=== PATIENT | female | born 2000 | race Caucasian/White ===

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

== ENCOUNTER 2019-08-08 15:21 | Emergency (ER) | payer BC ==
[~2019-08-08] VITALS: Ht 170 cm; Wt 100.0 kg
[2019-08-08] MEDS ORDERED: FLUT100B (15:39)
[2019-08-08] MEDS ORDERED: SPIR100T4 PO (15:39)
[2019-08-08] MEDS ORDERED: SERT50TA9 PO (15:39)
[2019-08-08] MEDS ORDERED: SPIR25TA5 PO (15:39)
[2019-08-08] MEDS ORDERED: NF-ADDXR30 (15:39)
[2019-08-08] MEDS ORDERED: IRON18TA PO (15:39)
[2019-08-08] MEDS ORDERED: LORA10CA PO (15:39)
--- NOTE | 2019-08-08 15:57 | ED GI ---
General Chief Complaint: Rect Problems Stated Complaint: BLOODY STOOLS Nursing Triage Note: PT CO OF BLOODY STOOLS FOR 3-4 MONTHS. PT DENIES PAIN. STATES HAS BLOOD EVERYTIME SHE HAS STOOLS Source of Information: Patient Exam Limitations: No Limitations History of Present Illness Date Seen by Provider: Aug 08, 2019 Time Seen by Provider: 16:00 Initial Comments To ER with bloody stools or bright red blood per rectum every time and only when she has a bowel movement for the past 3 months. She denies any rectal or abdominal pain. She denies any fevers or chills or systemic symptoms like nausea vomiting joint pains. No known personal or family history of inflammatory bowel disease. No lightheadedness. Timing/Duration: Other Severity/Quality: Cramping Location: Other Radiation: No Radiation Activities at Onset: None Allergies and Home Medications Allergies Coded Allergies: nut - unspecified (Verified Allergy, Unknown, 08/08/19) peas (Verified Allergy, Unknown, 08/08/19) Patient Home Medication List Home Medication List Reviewed: Yes Review of Systems Review of Systems Constitutional: see HPI EENTM: No Symptoms Reported Respiratory: No Symptoms Reported Cardiovascular: No Symptoms Reported Gastrointestinal: See HPI; Denies Abdominal Pain, Denies Constipated, Denies Diarrhea, Denies Nausea; Rectal Bleeding Genitourinary: No Symptoms Reported Musculoskeletal: no symptoms reported Skin: no symptoms reported Psychiatric/Neurological: No Symptoms Reported Endocrine: No Symptoms Reported Hematologic/Lymphatic: No Symptoms Reported Past Kmfvylm-Afsmpt-Nlbbnt Hx Patient Social History Alcohol Use: Rarely Uses Recreational Drug Use: No Recent Foreign Travel: No Contact w/Someone Who Travel: No Recent Infectious Disease Expo: No Recent Hopitalizations: No Ebola Symptoms: Denies Symptoms Listed Immunizations Up To Date Date of Influenza Vaccine: Mar 28, 2019 Seasonal Allergies Seasonal Allergies: Yes Past Medical History Surgeries: Yes Respiratory: Yes Asthma Cardiac: No Neurological: No Genitourinary: No Gastrointestinal: No Musculoskeletal: No Endocrine: No Cancer: No ADD/ADHD, Anxiety Integumentary: Yes (BOILS UNDER SKIN) Physical Exam Vital Signs Vital Signs - First Documented 08/08/19 15:28 Temp 36.6 Pulse 86 Resp 12 B/P (MAP) 118/81 Capillary Refill : Height/Weight/BMI Height: '" Weight: lbs. oz. kg; 34.00 BMI Method: General Appearance: WD/WN, no apparent distress, other (clinically she is stable without evidence of acute blood loss, she is not tachycardic or hypotensive, she is not pale or short of breath and lightheaded.) HEENT: PERRL/EOMI, normal ENT inspection Respiratory: no respiratory distress, no accessory muscle use Gastrointestinal: normal bowel sounds, non tender, soft, other (no obvious bleeding during rectal exam with Kimberly RN at the bedside. No external hemorrhoid visualized. No fissure visualized.) Extremities: normal range of motion, non-tender Neurologic/Psychiatric: alert, normal mood/affect Skin: normal color, warm/dry Progress/Results/Core Measures Results/Orders Lab Results Laboratory Tests Test 08/08/19 16:10 08/08/19 16:16 Range/Units Urine Color YELLOW Urine Clarity CLEAR Urine pH 5.0 5-9 Urine Specific [place] >=1.030 1.016-1.022 Urine Protein NEGATIVE NEGATIVE Urine Glucose (UA) NEGATIVE NEGATIVE Urine Ketones NEGATIVE NEGATIVE Urine Nitrite NEGATIVE NEGATIVE Urine Bilirubin NEGATIVE NEGATIVE Urine Urobilinogen 0.2 < = 1.0 MG/DL Urine Leukocyte Esterase TRACE H NEGATIVE Urine RBC (Auto) NEGATIVE NEGATIVE Urine RBC NONE /HPF Urine WBC RARE /HPF Urine Squamous Epithelial Cells 0-2 /HPF Urine Crystals NONE /LPF Urine Bacteria TRACE /HPF Urine Casts NONE /LPF Urine Mucus NEGATIVE /LPF Urine Culture Indicated NO White Blood Count 12.0 H 4.3-11.0 10^3/uL Red Blood Count 4.39 4.35-5.85 10^6/uL Hemoglobin 12.4 11.5-16.0 G/DL Hematocrit 39 35-52 % Mean Corpuscular Volume 88 80-99 FL Mean Corpuscular Hemoglobin 28 25-34 PG Mean Corpuscular Hemoglobin Concent 32 32-36 G/DL Red Cell Distribution Width 13.8 10.0-14.5 % Platelet Count 306 130-400 10^3/uL Mean Platelet Volume 10.8 H 7.4-10.4 FL Neutrophils (%) (Auto) 62 42-75 % Lymphocytes (%) (Auto) 28 12-44 % Monocytes (%) (Auto) 7 0-12 % Eosinophils (%) (Auto) 3 0-10 % Basophils (%) (Auto) 0 0-10 % Neutrophils # (Auto) 7.4 1.8-7.8 X 10^3 Lymphocytes # (Auto) 3.4 1.0-4.0 X 10^3 Monocytes # (Auto) 0.8 0.0-1.0 X 10^3 Eosinophils # (Auto) 0.4 H 0.0-0.3 10^3/uL Basophils # (Auto) 0.0 0.0-0.1 10^3/uL Prothrombin Time 13.2 12.2-14.7 SEC INR Comment 1.0 0.8-1.4 Sodium Level 136 135-145 MMOL/L Potassium Level 3.7 3.6-5.0 MMOL/L Chloride Level 102 98-107 MMOL/L Carbon Dioxide Level 25 21-32 MMOL/L Anion Gap 9 5-14 MMOL/L Blood Urea Nitrogen 10 7-18 MG/DL Creatinine 0.75 0.60-1.30 MG/DL Estimat Glomerular Filtration Rate > 60 BUN/Creatinine Ratio 13 Glucose Level 89 70-105 MG/DL Calcium Level 10.0 8.5-10.1 MG/DL Corrected Calcium 9.6 8.5-10.1 MG/DL Total Bilirubin 0.4 0.1-1.0 MG/DL Aspartate Amino Transf (AST/SGOT) 18 5-34 U/L Alanine Aminotransferase (ALT/SGPT) 18 0-55 U/L Alkaline Phosphatase 61 40-136 U/L Total Protein 7.3 6.4-8.2 GM/DL Albumin 4.5 3.2-4.5 GM/DL My Orders Orders - MINERVA DILLARD APRN Cbc With Automated Diff (08/08/19 15:55) Comprehensive Metabolic Panel (08/08/19 15:55) Protime With Inr (08/08/19 15:55) Ua Culture If Indicated (08/08/19 15:55) Vital Signs/I&O 08/08/19 15:28 Temp 36.6 Pulse 86 Resp 12 B/P (MAP) 118/81 Departure Communication (Admissions) [place] on clinical exam and labs I do not have enough to justify CT imaging of the abdomen. She'll follow up with Dr. Hair tomorrow. Impression Primary Impression: Rectal bleeding Disposition: HOME, SELF-CARE Condition: Stable Departure-Patient Inst. Decision time for Depature: 16:03 Referrals: JOVANA HAIR MD NO,LOCAL PHYSICIAN (PCP) Primary Care Physician Patient Instructions: Hemorrhoids (DC) Add. Discharge Instructions: 1. Would be a good idea to take a stool softener such as Colace once daily and increase her water intake to help soften her stools. Follow-up with nurse practitioner Arturo George tomorrow, he works with surgeon Dr. Hair. He'll help facilitate colonoscopy to further evaluate this rectal bleeding, likely an internal hemorrhoid. All discharge instructions reviewed with patient and/or family. Voiced understanding. Copy Copies To 1: JOVANA HAIR MD, PETER J APRN Aug 08, 2019 15:57
[2019-08-08 16:21] LABS: BASOPHILS % (AUTO) 0 % (0-10); EOSINOPHILS # (AUTO) 0.4 10^3/uL (0.0-0.3); EOSINOPHILS % (AUTO) 3 % (0-10); HEMATOCRIT 39 % (35-52); HEMOGLOBIN 12.4 G/DL (11.5-16.0); LYMPHOCYTES # (AUTO) 3.4 X 10^3 (1.0-4.0); LYMPHOCYTES % (AUTO) 28 % (12-44); MEAN CORPUSCULAR HEMOGLOBIN 28 PG (25-34); MEAN CORPUSCULAR HGB CONC 32 G/DL (32-36); MEAN CORPUSCULAR VOLUME 88 FL (80-99); MEAN PLATELET VOLUME 10.8 FL (7.4-10.4); MONOCYTES # (AUTO) 0.8 X 10^3 (0.0-1.0); MONOCYTES % (AUTO) 7 % (0-12); NEUTROPHILS # (AUTO) 7.4 X 10^3 (1.8-7.8); NEUTROPHILS % (AUTO) 62 % (42-75); PLATELET COUNT 306 10^3/uL (130-400); RED CELL DISTRIBUTION WIDTH 13.8 % (10.0-14.5)
[2019-08-08 16:28] LABS: BILIRUBIN,URINE NEGATIVE (NEGATIVE); CLARITY,URINE CLEAR; COLOR,URINE YELLOW; GLUCOSE, URINE (UA) NEGATIVE (NEGATIVE); KETONES,URINE NEGATIVE (NEGATIVE); LEUKOCYTE ESTERASE ,URINE TRACE (NEGATIVE); NITRITE,URINE NEGATIVE (NEGATIVE); PROTEIN,URINE NEGATIVE (NEGATIVE)
[2019-08-08 16:35] LABS: BACTERIA,URINE TRACE /HPF; SQUAMOUS EPITHELIAL CELL,UR 0-2 /HPF; WBC,URINE RARE /HPF
[2019-08-08 16:36] LABS: PROTHROMBIN TIME PATIENT 13.2 SEC (12.2-14.7)
[2019-08-08 16:42] LABS: ALANINE AMINOTRANSFERASE 18 U/L (0-55); ALBUMIN 4.5 GM/DL (3.2-4.5); ALKALINE PHOSPHATASE 61 U/L (40-136); BILIRUBIN,TOTAL 0.4 MG/DL (0.1-1.0); BUN/CREATININE RATIO 13; CARBON DIOXIDE 25 MMOL/L (21-32); CHLORIDE 102 MMOL/L (98-107); CREATININE SERUM 0.75 MG/DL (0.60-1.30); GFR ESTIMATED > 60; GLUCOSE 89 MG/DL (70-105); POTASSIUM 3.7 MMOL/L (3.6-5.0); SODIUM 136 MMOL/L (135-145); TOTAL PROTEIN 7.3 GM/DL (6.4-8.2)
--- OUTSIDE RECORDS SUMMARY | 2019-08-18 09:25 | XMS REPORT | Continuity of Care Document ---
Author Organization Unknown Address Unknown Phone Unavailable Allergies Active Description Code Type Severity Reaction Onset Reported/Identified Relationship to Patient Clinical Status Yes AMOXICILLIN TRIHYDRATE 99171 DRUG INGREDI N/A N/A Yes CEFDINIR 62182 DRUG INGREDI N/A Hives 12/18/2014 Yes AMOXICILLIN 3675 Drug Allergy High Hives 06/15/2018 Yes CEFDINIR 7588 Drug Allergy High Hives 06/15/2018 Yes nut - unspecified [id number] Drug Allergy Unknown N/A 08/08/2019 Yes peas [id number] Drug Allergy Unknown N/A 08/08/2019 Medications Medication Packaging Start Date St op Date Route Dosage Sig PROCHLORPERAZINE EDISYLATE 5 MG/ML IJ SOLN 02/10/2016 Intravenous 10 ONCE DIPHENHYDRAMINE HCL 50 MG/ML IJ SOLN 02/10/2016 Intravenous 25 ONCE miSOPROStol (CYTOTEC) 200 mc g tablet -- Take by mouth One time for 1 dose tablet 06/13/2018 06/13/2018 Oral ONE TIME ONE TIME Problems Date Dx Coded Attending Type Code Diagnosis Diagnosed By 06/04/2015 V 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 06/11/2015 LEO HENRY V 169 Menorrhagia LEO HENRY 07/10/2015 AZALIA CHINO N92.0 Excessive and frequent menstruation with regular cycle 07/10/2015 AZALIA CHINO N92.0 Excessive and frequent menstruation with regular cycle 07/10/2015 V S99.911A U nspecified injury of right ankle, initial encounter 07/10/2015 AZALIA CHINO N92.0 Excessive and frequent menstruation with regular cycle 07/11/2015 MANUEL FULLER V 354704 Ankle Pain MANUEL FULLER 07/12/2015 RONNI SANTIAGO V [id number] New Patient RONNI SANTIAGO 07/18/2015 MINERVA SHEN V [id number] 09 Consult MINERVA HSEN 02/10/2016 COOKIE SCHERER V [id number] Arm Pain COOKIE SCHERER 02/10/2016 COOKIE SCHERER V 401 Weakness COOKIE SCHERER 02/10/2016 COOKIE SCHERER V M62.81 Muscle weakness (generalized) COOKIE SCHERER 02/10/2016 COOKIE SCHERER V R51 Headache COOKIE SCHERER 05/13/2018 WORKING Z30.8 Encounter for other contraceptive management 06/15/2018 EBONIE CHAVARRIA WORKING M 79.601 Pain in right arm 06/15/2018 EBONIE CHAVARRIA WORKING M 79.602 Pain in left arm 06/15/2018 EBONIE CHAVARRIA WORKING M 79.604 Pain in right leg 07/07/2018 WORKING Z30.430 Encounter for insertion of intrauterine contraceptive device 07/07/2018 WORKING Z30.8 Encounter for other contraceptive management 07/07/2018 WORKING Z30.430 Encounter for insertion of intrauterine contraceptive device 12/27/2018 SB NEWMAN, BENEDICT F Ot I10 ESSENTIAL (PRIMARY) HYPERTENSION 12/27/2018 SB NEWMAN, BENEDICT F Ot M93.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, UNSPECIFIED, LEFT ANK 12/27/2018 SB NEWMAN, BENEDICT F Ot M94.8X7 OTHER SPECIFIED DISORDERS OF CARTILAGE, 01/23/2019 JOSE ANTONIO CHOWDHURY M89.9 Disorder of bone, unspecified 01/23/2019 JOSE ANTONIO CHOWDHURY M25.57 2 Pain in left ankle and joints of left fo 01/23/2019 JOSE ANTONIO CHOWDHURY M25.67 2 Stiffness of left ankle, not elsewhere c 01/23/2019 JOSE ANTONIO CHOWDHURY R29.89 8 Other symptoms and signs involving the m 01/24/2019 DARIEL PÉREZ M89.9 Disorder of bone, unspecified 01/24/2019 DARIEL PÉREZ M25.572 Pain in left ankle and joints of left fo 01/24/2019 DARIEL PÉREZ M25.672 Stiffness of left ankle, not elsewhere c 01/24/2019 DARIEL PÉREZ R29.898 Other symptoms and signs involving the m 01/26/2019 MIAH AYALA M25.572 Pain in left ankle and joints of left fo 01/26/2019 MIAH AYALA M25.672 Stiffness of left ankle, not elsewhere c 01/26/2019 MIAH AYALA R29.898 Other symptoms and signs involving the m 01/26/2019 LUCYMIAH M25.572 Pain in left ankle and joints of left fo 01/26/2019 LUCY MIAH M25.672 Stiffness of left ankle, not elsewhere c 01/26/2019 MIAH AYALA R29.898 Other symptoms and signs involving the m 01/31/2019 DARIEL PÉREZ M89.9 Disorder of bone, unspecified 01/31/2019 DARIEL PÉREZ M25.572 Pain in left ankle and joints of left fo 01/31/2019 DARIEL PÉREZ M25.672 Stiffness of left ankle, not elsewhere c 01/31/2019 STEPH PÉREZI R29.898 Other symptoms and signs involving the m 02/02/2019 DARIEL PÉREZ M89.9 Disorder of bone, unspecified 02/02/2019 STEPH PÉREZI M25.572 Pain in left ankle and joints of left fo 02/02/2019 DARIEL PÉREZ M25.672 Stiffness of left ankle, not elsewhere c 02/02/2019 DARIEL PÉREZ R29.898 Other symptoms and signs involving the m 02/17/2019 M89.9 Diso rder of bone, unspecified 02/17/2019 M94.9 Diso rder of cartilage, unspecified 02/20/2019 M89.9 Diso rder of bone, unspecified 02/20/2019 M94.9 Diso rder of cartilage, unspecified Procedures Code Description Performed By Per formed On [id number] CB C WITH AUTO DIFFERENTIAL 06/04/2015 LAB20 HEPA TIC FUNCTION PANEL 06/04/2015 [id number] CBC AND DIFFERENTIAL 06/04/2015 USPEL US P PRIYA COMPLETE 07/10/2015 USPEL US P PRIYA COMPLETE 07/10/2015 USPEL US P PRIYA COMPLETE 07/10/2015 REF87 AMB REFERRAL TO PHYSICAL THERAPY 01/07/2016 Results Test Result Range CBC WITH AUTO DIFFERENTIAL - 06/03/15 15 :42 BASOPHILS RELATIVE PERCENT 0.7 % 0.0 -2.5 EOSINOPHILS RELATIVE PERCENT 5.4 % < =5.0 HEMATOCRIT 33.2 % 36.3-43.4 HEMOGLOBIN 10.5 g/dL 12.2-14.8 LYMPHOCYTES RELATIVE PERCENT 24.5 % 1 3.0-41.0 MEAN CORPUSCULAR HEMOGLOBIN 27.1 pg 26 .7-31.7 MEAN CORPUSCULAR HEMOGLOBIN CONC 31.8 g/dL 33.2-34.7 MEAN CORPUSCULAR VOLUME 85.3 fL 79.9-9 2.3 MONOCYTES RELATIVE PERCENT 6.4 % 3.0 -13.0 NEUTROPHILS RELATIVE PERCENT 63.0 % 4 2.0-78.0 PLATELET COUNT 265 10E9/L 150-450 RED BLOOD CELL COUNT 3.89 10E12/L 4.10-5 .20 RED CELL DISTRIBUTION WIDTH 15.4 % 11 .2-13.5 [id number] 8.4 10E9/L 4.1-8.9 2284108 2.10 10E9/L 1.20-5.20 8968942 0.50 10E9/L 0.00-0.80 9521313 0.50 10E9/L 0.00-0.50 0155197 5.30 10E9/L 1.80-8.00 2134855 0.10 10E9/L 0.00-0.20 HEPATIC FUNCTION PANEL - 06/03/15 15:42 ALKALINE PHOSPHATASE 79 U/L 100-320 ALT 35 U/L 10-46 AST 25 U/L 15-45 BILIRUBIN DIRECT 0.1 mg/dL <=0.3 BILIRUBIN,TOTAL < mg/dL 0.3-1.2 PROTEIN TOTAL 6.7 g/dL 6.4-8.3 T4, FREE - 06/11/15 15:27 FREE T4 0.92 ng/dL 0.70-1.71 CBC WITH AUTO DIFFERENTIAL - 07/09/15 15 :40 BASOPHILS RELATIVE PERCENT 0.7 % 0.0 -2.5 EOSINOPHILS RELATIVE PERCENT 3.3 % < =5.0 HEMATOCRIT 36.8 % 36.3-43.4 HEMOGLOBIN 11.5 g/dL 12.2-14.8 LYMPHOCYTES RELATIVE PERCENT 34.1 % 1 3.0-41.0 MEAN CORPUSCULAR HEMOGLOBIN 26.6 pg 26 .7-31.7 MEAN CORPUSCULAR HEMOGLOBIN CONC 31.4 g/dL 33.2-34.7 MEAN CORPUSCULAR VOLUME 85.0 fL 79.9-9 2.3 MONOCYTES RELATIVE PERCENT 9.3 % 3.0 -13.0 NEUTROPHILS RELATIVE PERCENT 52.6 % 4 2.0-78.0 PLATELET COUNT 293 10E9/L 150-450 RED BLOOD CELL COUNT 4.33 10E12/L 4.10-5 .20 RED CELL DISTRIBUTION WIDTH 15.4 % 11 .2-13.5 8776693 7.8 10E9/L 4.1-8.9 4411266 2.70 10E9/L 1.20-5.20 9755652 0.70 10E9/L 0.00-0.80 1611371 0.30 10E9/L 0.00-0.50 8635478 4.10 10E9/L 1.80-8.00 0618716 0.10 10E9/L 0.00-0.20 HEPATIC FUNCTION PANEL - 07/09/15 15:40 ALKALINE PHOSPHATASE 76 U/L 100-320 ALT 15 U/L 10-46 AST 19 U/L 15-45 BILIRUBIN DIRECT 0.1 mg/dL <=0.3 BILIRUBIN,TOTAL < mg/dL 0.2-1.3 PROTEIN TOTAL 7.3 g/dL 6.4-8.3 CBC WITH AUTO DIFFERENTIAL - 08/05/15 15 :43 BASOPHILS RELATIVE PERCENT 0.9 % 0.0 -2.5 EOSINOPHILS RELATIVE PERCENT 3.9 % < =5.0 HEMATOCRIT 32.5 % 36.3-43.4 HEMOGLOBIN 10.6 g/dL 12.2-14.8 LYMPHOCYTES RELATIVE PERCENT 30.9 % 1 3.0-41.0 MEAN CORPUSCULAR HEMOGLOBIN 27.6 pg 26 .7-31.7 MEAN CORPUSCULAR HEMOGLOBIN CONC 32.6 g/dL 33.2-34.7 MEAN CORPUSCULAR VOLUME 84.6 fL 79.9-9 2.3 MONOCYTES RELATIVE PERCENT 9.8 % 3.0 -13.0 NEUTROPHILS RELATIVE PERCENT 54.5 % 4 2.0-78.0 PLATELET COUNT 259 10E9/L 150-450 RED BLOOD CELL COUNT 3.84 10E12/L 4.10-5 .20 RED CELL DISTRIBUTION WIDTH 14.9 % 11 .2-13.5 0913925 6.5 10E9/L 4.1-8.9 9777214 2.00 10E9/L 1.20-5.20 1197187 0.60 10E9/L 0.00-0.80 9533049 0.30 10E9/L 0.00-0.50 8145844 3.50 10E9/L 1.80-8.00 1625104 0.10 10E9/L 0.00-0.20 HEPATIC FUNCTION PANEL - 08/05/15 15:43 ALKALINE PHOSPHATASE 72 U/L 100-320 ALT 46 U/L 10-46 AST 29 U/L 15-45 BILIRUBIN DIRECT 0.1 mg/dL <=0.3 BILIRUBIN,TOTAL < mg/dL 0.2-1.3 PROTEIN TOTAL 6.8 g/dL 6.4-8.3 HEPATIC FUNCTION PANEL - 09/11/15 09:19 ALKALINE PHOSPHATASE 65 U/L 100-320 ALT 30 U/L 10-46 AST 28 U/L 15-45 BILIRUBIN DIRECT 0.1 mg/dL <=0.3 BILIRUBIN,TOTAL 0.3 mg/dL 0.2-1.3 PROTEIN TOTAL 6.8 g/dL 6.4-8.3 CBC WITH AUTO DIFFERENTIAL - 09/11/15 09 :19 BASOPHILS RELATIVE PERCENT 0.8 % 0.0 -2.5 EOSINOPHILS RELATIVE PERCENT 3.7 % < =5.0 HEMATOCRIT 34.9 % 36.3-43.4 HEMOGLOBIN 11.3 g/dL 12.2-14.8 LYMPHOCYTES RELATIVE PERCENT 36.3 % 1 3.0-41.0 MEAN CORPUSCULAR HEMOGLOBIN 27.5 pg 26 .7-31.7 MEAN CORPUSCULAR HEMOGLOBIN CONC 32.3 g/dL 33.2-34.7 MEAN CORPUSCULAR VOLUME 85.0 fL 79.9-9 2.3 MONOCYTES RELATIVE PERCENT 8.2 % 3.0 -13.0 NEUTROPHILS RELATIVE PERCENT 51.0 % 4 2.0-78.0 PLATELET COUNT 254 10E9/L 150-450 RED BLOOD CELL COUNT 4.10 10E12/L 4.10-5 .20 RED CELL DISTRIBUTION WIDTH 14.5 % 11 .2-13.5 8781300 5.8 10E9/L 4.1-8.9 2885062 2.10 10E9/L 1.20-5.20 6699700 0.50 10E9/L 0.00-0.80 0998297 0.20 10E9/L 0.00-0.50 9249735 3.00 10E9/L 1.80-8.00 7887573 0.00 10E9/L 0.00-0.20 CBC WITH AUTO DIFFERENTIAL - 02/10/16 19 :45 BASOPHILS RELATIVE PERCENT 1.0 % 0.0 -2.5 EOSINOPHILS RELATIVE PERCENT 3.5 % < =5.0 HEMATOCRIT 33.0 % 34.9-44.5 HEMOGLOBIN 10.7 g/dL 12.0-15.5 LYMPHOCYTES RELATIVE PERCENT 31.0 % 1 3.0-41.0 MEAN CORPUSCULAR HEMOGLOBIN 27.0 pg 26 .7-31.7 MEAN CORPUSCULAR HEMOGLOBIN CONC 32.4 g/dL 33.2-34.7 MEAN CORPUSCULAR VOLUME 83.5 fL 81.6-9 8.3 MONOCYTES RELATIVE PERCENT 6.7 % 3.0 -13.0 NEUTROPHILS RELATIVE PERCENT 57.8 % 4 2.0-78.0 PLATELET COUNT 359 10E9/L 150-450 RED BLOOD CELL COUNT 3.95 10E12/L 3.90-5 .03 RED CELL DISTRIBUTION WIDTH 14.8 % 11 .9-15.5 3499916 10.7 10E9/L 3.5-10.5 7576593 3.30 10E9/L 0.90-2.90 8020533 0.70 10E9/L 0.30-0.90 4325328 0.40 10E9/L 0.05-0.50 6487854 6.20 10E9/L 1.70-7.00 6103434 0.10 10E9/L 0.00-0.20 COMPREHENSIVE METABOLIC PANEL - 02/10/16 20:15 ALBUMIN 4.1 g/dL 3.4-4.8 ALKALINE PHOSPHATASE 59 U/L 100-320 ALT 16 U/L 10-46 AST 18 U/L 15-45 BILIRUBIN,TOTAL 0.4 mg/dL 0.2-1.3 BUN BLOOD 10 mg/dL 6-20 CALCIUM 9.6 mg/dL 8.7-10.5 CHLORIDE 107 mmol/L 99-111 CO2 26 mmol/L 20-36 CREATININE 0.62 mg/dL 0.50-1.00 EGFR > mL/min >59 GLUCOSE 88 mg/dL 74-106 POTASSIUM 4.2 mmol/L 3.6-4.9 PROTEIN TOTAL 6.8 g/dL 6.4-8.3 SODIUM 139 mmol/L 136-145 TROPONIN I - 02/10/16 20:15 TROPONIN I < ng/mL 0.000-0.040 EXTRA LIGHT BLUE TOP - 02/10/16 20:15 1324 Extra tube in lab EXTRA PURPLE TOP - 02/10/16 20:15 1324 Extra tube in lab URINALYSIS, REFLEX CULTURE IF NEEDED - 0 02/10/16 22:00 APPEARANCE Clear [none] BILIRUBIN UA Negative Negative COLOR Light-Yellow [none] GLUCOSE UA Negative Negative HEMOGLOBIN UA Negative Negative LEUKOCYTE ESTERASE UA Negative Negative MUCOUS Rare FEW NITRATE UA Negative Negative PH UA 6.0 5.0-8.0 PROTEIN UA Negative Negative RBC UA 0-3 0-3 SPECIFIC GRAVITY UA 1.007 1.003-1.03 0 SQUAMOUS EPITHELIAL 2+ 1+ UROBILINOGEN UA 0.2 mg/dL 0.2 WBC UA 0-3 0-3 [id number] Negative Negative AEROBIC CULTURE - 09/15/16 15:56 [id number] few Gram positive cocci Clindamycin 0.25 ug/mL Erythromycin <= ug/mL Levofloxacin <= ug/mL Tetracycline <= ug/mL Vancomycin <= ug/mL Ciprofloxacin <= ug/mL Gentamicin <= ug/mL Tigecycline <= ug/mL Trimethoprim+Sulfamethoxazole <= ug/mL Moxifloxacin <= ug/mL Linezolid 2 ug/mL Oxacillin 0.5 ug/mL Rifampin <= ug/mL Daptomycin 0.5 ug/mL Doxycycline <= ug/mL STREP SCREEN CONFIRMATION - 11/29/17 20: 02 [id number] Negative CBC WITH AUTO DIFFERENTIAL - 04/08/18 10 :46 BASOPHILS RELATIVE PERCENT 0.5 % 0.0 -2.5 EOSINOPHILS RELATIVE PERCENT 2.9 % < =5.0 HEMATOCRIT 36.5 % 34.9-44.5 HEMOGLOBIN 11.0 g/dL 12.0-15.5 LYMPHOCYTES RELATIVE PERCENT 32.2 % 2 2.0-49.0 MEAN CORPUSCULAR HEMOGLOBIN 26.4 pg 26 .0-34.0 MEAN CORPUSCULAR HEMOGLOBIN CONC 30.1 g/dL 31.0-37.0 MEAN CORPUSCULAR VOLUME 87.7 fL 81.6-9 8.3 MONOCYTES RELATIVE PERCENT 7.3 % 2.0 -9.0 NEUTROPHILS RELATIVE PERCENT 57.1 % 4 0.0-75.0 NUCLEATED RED BLOOD CELLS 0 10E9/L <=0 PLATELET COUNT 348 10E9/L 150-450 RED BLOOD CELL COUNT 4.16 10E12/L 3.90-5 .03 RED CELL DISTRIBUTION WIDTH 14.1 % 11 .9-15.5 2551998 7.9 10E9/L 3.5-10.5 8990256 2.55 10E9/L 0.90-2.90 9675437 0.58 10E9/L 0.30-0.90 6492720 0.23 10E9/L 0.05-0.50 2716796 4.51 10E9/L 1.70-7.00 7707497 0.04 10E9/L 0.00-0.30 0847776 0 % VITAMIN D2/D3 TOTAL - 04/08/18 10:46 VITAMIN D2/D3 TOTAL 33 ng/ml 30-100 ERYTHROCYTE SEDIMENTATION RATE - 8 14:51 ERYTHROCYTE SEDIMENTATION RATE, AUTOMATED 24 mm/h 0-20 C-REACTIVE PROTEIN - 06/15/18 14:51 C-REACTIVE PROTEIN 10.6 mg/L <3.1 ANTINUCLEAR ANTIBODIES (SAM) IGG - 06/15 14:51 ANTI-NUCLEAR ANTIBODY, IGG None Detected None Detected C-REACTIVE PROTEIN - 09/01/18 15:04 1254643 0.5 mg/dL <=0.9 Complete urinalysis with reflex to cultu re - 08/08/19 16:10 Urine color determination YELLOW NRG Urine clarity determination CLEAR NR G Urine pH measurement by test strip 5.0 5-9 Specific gravity of urine by test strip >= 1.016-1.022 Urine protein assay by test strip, semi-quantitative NEGATIVE NEGATIVE Urine glucose detection by automated test strip NE GATIVE NEGATIVE Erythrocytes detection in urine sediment by light micr oscopy NEGATIVE NEGATIVE Urine ketones detection by automated test strip NE GATIVE NEGATIVE Urine nitrite detection by test strip NEGATIVE NEGATIVE Urine total bilirubin detection by test strip NEGA TIVE NEGATIVE Urine urobilinogen measurement by automated test strip (mass/volume) 0.2 mg/dL < = 1.0 Urine leukocyte esterase detection by dipstick TRA CE NEGATIVE Automated urine sediment erythrocyte cou nt by microscopy (number/high power field) NONE NRG Automated urine sediment leukocyte count by microscopy (number/high power field) RARE NRG Bacteria detection in urine sediment by light microsco py TRACE NRG Squamous epithelial cells detection in u rine sediment by light microscopy 0-2 NRG Crystals detection in urine sediment by light microsco py NONE NRG Casts detection in urine sediment by light microscopy NONE NRG Mucus detection in urine sediment by light microscopy NEGATIVE NRG Complete urinalysis with reflex to culture NO NRG Complete blood count (CBC) with automate d white blood cell (WBC) differential - 08/08/19 16:16 Blood leukocytes automated count (number/volume) 12.0 10*3/uL 4.3-11.0 Blood erythrocytes automated count (number/volume) 4.39 10*6/uL 4.35-5.85 Venous blood hemoglobin measurement (mass/volume) 12.4 g/dL 11.5-16.0 Blood hematocrit (volume fraction) 39 % 35-52 Automated erythrocyte mean corpuscular volume 88 [ foz_us] 80-99 Automated erythrocyte mean corpuscular h emoglobin (mass per erythrocyte) 28 pg 25-34 Automated erythrocyte mean corpuscular h emoglobin concentration measurement (mass/volume) 32 g/dL 32-36 Automated erythrocyte distribution width ratio 13. 8 % 10.0- 14.5 Automated blood platelet count (count/volume) 306 10*3/uL 130-400 Automated blood platelet mean volume measurement 10.8 [foz_us] 7.4-10.4 Automated blood neutrophils/100 leukocytes 62 % 42-75 Automated blood lymphocytes/100 leukocytes 28 % 12-44 Blood monocytes/100 leukocytes 7 % 0-12 Automated blood eosinophils/100 leukocytes 3 % 0-10 Automated blood basophils/100 leukocytes 0 % 0-10 Blood neutrophils automated count (number/volume) 7.4 10*3 1.8-7.8 Blood lymphocytes automated count (number/volume) 3.4 10*3 1.0-4.0 Blood monocytes automated count (number/volume) 0. 8 10*3 0.0-1.0 Automated eosinophil count 0.4 10*3/uL 0 .0-0.3 Automated blood basophil count (count/volume) 0.0 10*3/uL 0.0-0.1 PT panel in platelet poor plasma by coag ulation assay - 08/08/19 16:16 Prothrombin time (PT) in platelet poor plasma by coagu lation assay 13.2 s 12.2-14.7 INR in platelet poor plasma or blood by coagulation as say 1.0 0.8-1.4 Comprehensive metabolic panel - 08/08/19 16:16 Serum or plasma sodium measurement (moles/volume) 136 mmol/L 135-145 Serum or plasma potassium measurement (moles/volume) 3.7 mmol/L 3.6-5.0 Serum or plasma chloride measurement (moles/volume) 102 mmol/L 98-107 Carbon dioxide 25 mmol/L 21-32 Serum or plasma anion gap determination (moles/volume) 9 mmol/L 5-14 Serum or plasma urea nitrogen measurement (mass/volume ) 10 mg/dL 7-18 Serum or plasma creatinine measurement (mass/volume) 0.75 mg/dL 0.60-1.30 Serum or plasma urea nitrogen/creatinine mass ratio 13 NRG Serum or plasma creatinine measurement w ith calculation of estimated glomerular filtration rate > NRG Serum or plasma glucose measurement (mass/volume) 89 mg/dL 70-105 Serum or plasma calcium measurement (mass/volume) 10.0 mg/dL 8.5-10.1 Serum or plasma total bilirubin measurement (mass/volu me) 0.4 mg/dL 0.1-1.0 Serum or plasma alkaline phosphatase vanessa surement (enzymatic activity/volume) 61 U/L 40-136 Serum or plasma aspartate aminotransfera se measurement (enzymatic activity/volume) 18 U/L 5-34 Serum or plasma alanine aminotransferase measurement (enzymatic activity/volume) 18 U/L 0-55 Serum or plasma protein measurement (mass/volume) 7.3 g/dL 6.4-8.2 Serum or plasma albumin measurement (mass/volume) 4.5 g/dL 3.2-4.5 CALCIUM CORRECTED 9.6 mg/dL 8.5-10.1 Encounters ACCT No. Visit Date/Time Discharge Status Pt. Type Provider Facility Loc./Unit Complaint [id number] 11/20/2018 13:40:00 11/20/2018 23:59: 59 [facility] Outpatient SILVINA VILLAVICENCIO [facility]AC [facility] [id number] 05/27/2015 18:31:05 05/27/2015 23:59:5 9 CLS Outpatient Holly Elam [id number] 11/03/2014 11:46:15 11/03/2014 23:59:5 9 CLS Outpatient Holly Elam [id number] 07/07/2018 15:07:02 07/07/2018 23: 59:59 CLS Outpatient AZALIA CHINO [facility] FRDOCL [id number] 06/15/2018 14:45:00 06/15/2018 23: 59:00 DIS Outpatient EBONIE CHAVARRIA [facility] FLBOPS [id number] 07/10/2015 09:49:35 07/10/2015 23: 59:00 DIS Outpatient AZALIA CHINO [facility] [place] [id number] 01/25/2014 15:27:32 01/25/2014 23: 59:00 DIS Outpatient LESA BASURTO [facility] [id number] 08/08/2019 15:22:00 020 17:25:00 DIS Emergency MINERVA DILLARD APRN [facility] ER BLOODY STOOLS [id number] 12/06/2018 15:22:00 019 23:59:59 CLS Outpatient LESA BASURTO MD [facility] RAD ESSENTIAL HYPERTENSION,OSTEOCHONDRITIS OF TALUS [id number] 05/31/2019 15:43:48 9 23:59:59 CLS Outpatient EYAD BULLOCK [facility] [id number] 04/14/2019 15:16:08 9 23:59:59 CLS Outpatient EYAD BULLOCK [facility] [id number] 01/16/2019 08:59:28 9 23:59:59 CLS Outpatient NAEEM RODRÍGUEZ [facility] [id number] 09/05/2018 14:50:08 9 23:59:59 CLS Outpatient RONNI SANTIAGO [facility] [id number] 09/01/2018 15:00:36 9 23:59:59 CLS Outpatient [place] [address] [id number] 09/01/2018 14:13:25 9 23:59:59 CLS Outpatient Johnna NUNN [place] [address] [id number] 05/18/2018 08:38:08 8 23:59:59 CLS Outpatient RONNI SANTIAGO [facility] [id number] 04/08/2018 10:42:32 8 23:59:59 CLS Outpatient [facility] [id number] 04/08/2018 09:50:48 8 23:59:59 CLS Outpatient RONNI SANTIAGO [facility] [id number] 01/19/2018 08:45:00 8 23:59:59 CLS Outpatient RONNI SANTIAGO [facility] [id number] 12/03/2017 08:10:06 8 23:59:59 CLS Outpatient EUGENIO DAMON Rain [facility] [id number] 11/29/2017 19:39:21 8 23:59:59 CLS Outpatient EMMA BAEZ [facility] [id number] 09/10/2017 10:01:04 8 23:59:59 CLS Outpatient RONNI SANTIAGO [facility] [id number] 09/08/2017 08:51:08 8 23:59:59 CLS Outpatient DAMON EUGENIO N [facility] [id number] 08/13/2017 18:16:19 8 23:59:59 CLS Outpatient [facility] EXP [id number] 08/11/2017 08:05:48 8 23:59:59 CLS Outpatient DAMON EUGENIO Rain [facility] [id number] 07/30/2017 09:29:22 8 23:59:59 CLS Outpatient EYAD BULLOCK [facility] [id number] 07/07/2017 07:57:46 8 23:59:59 CLS Outpatient EUGENIO DAMON [facility] [id number] 06/30/2017 09:01:43 8 23:59:59 CLS Outpatient EYAD BULLOCK [facility] [id number] 06/03/2017 08:04:40 7 23:59:59 CLS Outpatient EUGENIO DAMON [facility] [id number] 06/01/2017 14:55:39 7 23:59:59 CLS Outpatient EYAD BULLOCK [facility] [id number] 05/03/2017 09:34:49 7 23:59:59 CLS Outpatient EYAD BULLOCK [facility] [id number] 04/30/2017 09:56:53 7 23:59:59 CLS Outpatient EUGENIO DAMON [facility] [id number] 04/07/2017 17:36:19 7 23:59:59 CLS Outpatient [facility] [id number] 03/23/2017 18:09:11 7 23:59:59 CLS Outpatient EMMA BAEZ [facility] [id number] 02/22/2017 14:23:44 7 23:59:59 CLS Outpatient EAYD BULLOCK [facility] [id number] 12/11/2016 15:16:42 7 23:59:59 CLS Outpatient ANABELLA MILLER [facility] [id number] 12/02/2016 11:03:37 7 23:59:59 CLS Outpatient EYAD BULLOCK [facility] [id number] 09/15/2016 15:08:39 7 23:59:59 CLS Outpatient AMURA PHILLIPS [facility] [id number] 06/24/2016 10:37:56 6 23:59:59 CLS Outpatient RONNI SANTIAGO [facility] [id number] 05/26/2016 12:35:37 6 23:59:59 CLS Outpatient KASHIF STONE [facility] [id number] 05/15/2016 16:01:58 6 23:59:59 [facility] [id number] 05/15/2016 15:25:38 6 23:59:59 CLS Outpatient EYAD BULLOCK [facility] [id number] 03/29/2016 12:43:10 6 23:59:59 CLS Outpatient BELKIS SEQUEIRA Carmela [facility] [id number] 02/10/2016 17:25:13 6 23:59:59 CLS Outpatient MAURA PHILLIPS [facility] [id number] 02/10/2016 18:42:53 6 22:37:00 DIS Emergency LEONORECOOKIE [facility] [id number] 12/24/2015 11:07:40 6 23:59:59 CLS Outpatient RONNI SANITAGO [facility] [id number] 10/17/2015 15:39:43 6 23:59:59 [id number]2015 13:50:12 6 23:59:59 [id number]/2015 09:00:23 6 23:59:59 CLS Outpatient JOSE LUISMINERVA [facility] KZOR [id number] 09/20/2015 11:18:46 6 23:59:59 CLS Outpatient RONNI SANTIAGO [facility] 901 [id number] 09/19/2015 15:02:02 6 23:59:59 [id number]12/2015 16:16:13 6 23:59:59 CLS Outpatient JUNE CLEMENTE [facility] KZTHR [id number] 09/11/2015 09:16:49 6 23:59:59 [facility]01 [id number] 09/10/2015 12:59:01 6 23:59:59 CLS Outpatient JUNE CLEMENTE [facility] KZTHR [id number] 09/04/2015 14:56:54 6 23:59:59 CLS Outpatient JUNE CLEMENTE [facility] [id number] 08/30/2015 15:25:15 6 23:59:59 CLS Outpatient SHAWNA PEREZ [facility] [id number] 08/28/2015 15:23:28 6 23:59:59 CLS Outpatient JUNE CLEMENTE [facility]ZTHR [id number] 08/23/2015 15:33:12 6 23:59:59 CLS Outpatient SHAWNA PEREZ [facility] [id number] 08/21/2015 15:30:08 6 23:59:59 CLS Outpatient JUNE CLEMENTE [facility] KZ[facility] [id number] 08/19/2015 08:41:47 6 23:59:59 CLS Outpatient RONNI SANTIAGO [facility] 901 [id number] 08/16/2015 15:31:00 6 23:59:59 CLS Outpatient SHAWNA PEREZ [facility] KZTHR [id number] 08/12/2015 14:47:33 6 23:59:59 CLS Outpatient JUNE CLEMENTE [facility] KZTHR [id number] 08/09/2015 14:58:41 6 23:59:59 CLS Outpatient JUNE CLEMENTE [facility] [id number] 08/07/2015 13:52:31 6 23:59:59 CLS Outpatient JUNE CLEMENTE [facility] [id number] 08/05/2015 15:40:12 6 23:59:59 [facility]01 [id number] 08/02/2015 14:49:40 6 23:59:59 CLS Outpatient SHAWNA PEREZ [facility] KZTHR [id number] 07/30/2015 15:35:59 6 23:59:59 [facility] KZTH[facility] [id number] 07/18/2015 09:51:22 6 23:59:59 CLS Outpatient MINERVA SHEN [facility] KZOR [id number] 07/12/2015 14:57:33 6 23:59:59 CLS Outpatient RONNI SANTIAGO [place] [id number] 07/11/2015 10:19:31 6 23:59:59 CLS Outpatient FULLERMANUEL [facility] UPED [id number] 07/10/2015 16:20:26 6 23:59:59 [facility] URISHXR [id number] 07/10/2015 16:01:01 6 23:59:59 CLS Outpatient AIME CRUMP [facility] EXPUR [id number] 07/09/2015 15:32:35 6 23:59:59 [facility]01 [id number] 06/11/2015 15:26:34 5 23:59:[address] [facility] CODE [id number] 06/11/2015 14:20:19 5 23:59:59 CLS Outpatient CARLLEO TUCKER [facility] CODE [id number] 06/03/2015 15:38:37 5 23:59:59 CLS Outpatient [place] [id number] 12/22/2016 16:53:38 Document Registration [id number] 02/10/2016 19:22:04 Document Registration [id number] 07/01/2015 13:05:59 Document Registration [id number] 06/25/2015 13:26:21 Document Registration [id number] 05/01/2015 16:19:19 Document Registration [id number] 02/17/2019 15:00:11 2018 23:59:59 CLS Outpatient Imaging [facility] [address] [id number] 02/02/2019 07:29:12 2018 01:09:05 DIS Outpatient DARIEL PÉREZ [facility] - at [address] [id number] 01/31/2019 08:05:54 2018 01:08:35 DIS Outpatient BETO DARIEL diggss [facility] - at [address] [id number] 01/26/2019 06:58:33 2018 01:09:04 DIS Outpatient LUCYMIAH [facility] - at [address] [id number] 01/24/2019 13:59:09 2018 01:09:24 DIS Outpatient DARIEL PÉREZ [facility] - at [address] [id number] 01/23/2019 08:13:39 2018 01:08:17 DIS Outpatient JOSE ANTONIO CHOWDHURY [facility] - at [address] [id number] 03/16/2019 11:11:15 Document Registration [id number] 09/01/2018 00:00:00 09/01/2018 23: 59:59 CLS Outpatient [facility] C enter - Neurology YESENIA [id number] 08/08/2018 00:00:00 08/08/2018 23: 59:59 CLS Outpatient [facility] O BGYN SFOB [id number] 07/07/2018 15:08:50 07/07/2018 23: 59:59 CLS Outpatient [facility] O BGYN SFOB [id number] 07/07/2018 14:51:41 07/07/2018 23: 59:[address] [facility] O BGYN SFOB [id number] 07/01/2018 00:00:00 07/01/2018 23: 59:[address] [facility] C enter - Neurology [facility] [id number] 06/24/2018 00:00:00 06/24/2018 23: 59:[address] [facility] C enter - Neurology [facility] [id number] 06/15/2018 12:40:59 06/15/2018 23: 59:[address] [facility] C enter - Neurology [facility] [id number] 06/13/2018 00:00:00 06/13/2018 23: 59:59 CLS Outpatient [facility] O BGYN SFOB [id number] 05/30/2018 00:00:00 05/30/2018 23: 59:59 CLS Outpatient [facility] O BGYN SFOB [id number] 05/13/2018 13:31:29 05/13/2018 23: 59:[address] [facility] O BGYN SFOB [id number] 05/13/2018 00:00:00 05/13/2018 23: 59:[address] [facility] O BGYN SFOB [id number] 04/12/2018 00:00:00 04/12/2018 23: 59:[address] [facility] O BGYN SFOB
== END 2019-08-08 17:25 | disposition home or self-care (01) ==
LOC: EDUNIT# 15:21 → ER 15:22
DX: K62.5 Hemorrhage of anus and rectum (principal)
CPT/HCPCS: 36415; 80053; 81000; 84703; 85025; 85610; 99282